=== PATIENT | male | born 1980 | race Caucasian/White ===

== ENCOUNTER 2022-09-30 08:46 | Outpatient (REF) | payer BC, SELFPAY ==
[2022-09-30 12:08] LABS: Alanine Aminotransferase 35 U/L (0-40); Aspartate Amino Transferase 28 U/L (5-37); Cholesterol 224 mg/dL; Glucose Fasting 91 mg/dL (60-99); HDL Cholesterol 44 mg/dL; LDL Cholesterol Calculated 160 mg/dl; Triglycerides 104 mg/dL
== END 2022-09-30 08:47 | disposition home or self-care (01) ==
LOC: HO.HMGCLDS 08:46
PROVIDERS: PCP Internal Medicine; Visit Provider Internal Medicine
DX: Z00.01 Encounter for general adult medical examination with abnormal findings (principal); E66.3 Overweight
CPT/HCPCS: 36415; 80061; 82947; 84450; 84460

== ENCOUNTER 2024-02-15 09:02 | Outpatient (AMB) | payer BC, SELFPAY ==
--- NOTE | 2024-02-15 09:14 | MHC.PC.OV ---
Vital Signs 02/15/24 09:18 Height 5 ft 10 in Weight 229 lb BMI 32.9 BP 130/70 Blood Pressure Location Rt brachial Position Sitting Pulse 44 L Pulse Source Pulse Oximeter Pulse Oximetry (%) 99 Oxygen Delivery Method Room Air Intake Visit Reasons: Annual PE Intake Note: Pt is here today for his PE Allergies No Known Allergies Allergy (Verified 02/15/24 09:40) Medication List - Last Reconciled 02/15/24 by Reyna Rangel MD No Known Home Meds Tobacco use date assessed: 02/15/24 Dental Screening Dental Screen Date: 02/15/24 Did you have a dental visit in the last 12 months?: Yes Did you have a dental problem in the last 6 months where you did not have access to dental care?: No Was dental information given to patient?: Patient has dentist HPI Annual PE HPI Details 43-year-old male with hyperlipidemia, here today for a physical exam. He has been feeling well, with no complaints at present time. Vital signs obtained today however showed that pulse rate was at 41, but blood pressure within normal limits patient denies any chest pain, no shortness of breath, no lightheadedness or weakness. 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 Has been more careful with his diet, avoiding a lot of junk food, lost about 20 lb since last visit [facility] Medical History (Updated 02/15/24 @ 10:05 by Reyna Rangel MD) Sinus bradycardia Hyperlipidemia Bilateral plantar fasciitis Overweight (BMI 25.0-29.9) Family History Father ALS (amyotrophic lateral sclerosis) Diabetes mellitus Mother Cancer Sister Anxiety disorder Social History Housing: House Patient Tobacco Use Status: Never used Tobacco e-Cigarette/Vaping Use: Never Used service: No Current occupational status: employed Cognitive needs: No Hearing needs: No Vision needs: Yes Questionnaire PHQ-9 Over the last 2 weeks, how often have you been bothered by any of the following problems? 1. Little interest or pleasure in doing things: not at all 2. Feeling down, depressed, or hopeless: not at all 3. Trouble falling or staying asleep, or sleeping too much: not at all 4. Feeling tired or having little energy: several days 5. Poor appetite or overeating: several days 6. Feeling bad about yourself - or that you are a failure or have let yourself or your family down: not at all 7. Trouble concentrating on things, such as reading the newspaper or watching television: not at all 8. Moving or speaking so slowly that other people could have noticed. Or the opposite - being so fidgety or restless that you have been moving around a lot more than usual: not at all 9. Thoughts that you would be better off or of hurting yourself in some way: not at all Total score: 2 Depression Screening Interpretation: Negative Depression Screening Done: Yes 07057 - PHQ-9 Billing: Yes Source: Developed by Drs. Gordo Morgan, Verna Sarabia, Donald Pelletier and colleagues, with an educational gui from [employer]. Thrive Questionnaire Date Thrive assessed: 02/15/24 I am a: Patient What is your living situation today?: I have a steady place to live Within the past 12 months, did the food you bought not last and you didn't have the money to get more?: Sometimes True Within the past 12 months, did you worry whether your food would run out before you got money to buy more?: Sometimes True Do you have trouble paying for medicines?: No Do you have trouble getting transportation to medical appointments?: No Do you have trouble paying your heating and electricity bill?: Yes Do you have trouble taking care of your child, family member or friend?: No Do you have trouble with day-to-day activities such as bathing, preparing meals, shopping, managing finances, etc.?: No Are you currently unemployed and looking for a job?: No Are you interested in more education?: No Please select the resources that you would like help with: Housing/Jail Currently or been in a relationship where the following occur: No concerns reported THRIVE Score: 3 AUDIT C Alcohol Use Questionnaire (AUDIT-C) 1. How often do you have a drink containing alcohol?: Monthly or less 2. How many drinks containing alcohol do you have on a typical day when you are drinking?: 1 or 2 3. How often do you have six or more drinks on one occasion?: Never Total Score: 1 ILAN-7 AMB Questionnaire ILAN-7 Date ILAN - 7 assessed: 02/15/24 Feeling nervous, anxious, or on edge: 0 = Not at all Not being able to stop or control worryin = Not at all Worrying too much about different things: 1 = Several days Trouble relaxin = Not at all Being so restless that it is hard to sit still: 0 = Not at all Becoming easily annoyed or irritable: 1 = Several days Feeling afraid as if something awful might happen: 0 = Not at all Total ILAN-7 score (0-4 normal; 5-9 mild; 10-14 moderate; 15-21 severe): 2 Source: Developed by Drs. Gordo Morgan, Verna Sarabia, Donald Pelletier and colleagues, with an educational gui from [employer]. ILAN-7 Assessment Billing ILAN-7 Assessment Tool: ILAN-7 Assessment 67681 Review of Systems Const Denies body aches, Denies difficulty sleeping, Denies fatigue, Denies fever(s), Denies headache(s), Denies lethargy, Denies weakness and Reports weight loss Eyes Details: utd with eye exam , seen at [facility] a month ago Denies change in vision, Denies eye discharge, Denies itchy eyes and Reports requires corrective lenses ENT Denies dizziness, Denies headache(s), Denies nasal congestion, Denies nasal discharge and Denies sore throat Card Denies chest pain, Denies lightheadedness, Denies palpitations and Denies dyspnea Resp Denies chest congestion, Denies cough, Denies dyspnea and Denies wheezing GI Denies abdominal pain, Denies change in bowel habits and Denies heartburn Denies hematuria, Denies difficulty urinating, Denies dysuria, Denies urinary frequency and Denies urinary urgency Musc Reports no additional complaints Skin/Breast Denies lesions and Denies rash Neuro Denies dizziness, Denies headache(s) and Denies weakness Psych Reports as per HPI Endo Denies fatigue, Denies polydipsia, Denies polyuria and Denies palpitations Soren/Lymph Denies easy bruising Aller/Immun Denies itchy eyes, Denies seasonal rhinorrhea and Denies wheezing Physical exam (Primary Care) Vital Signs: Last Vital Signs Pulse 44 L 02/15/24 09:18 BP 130/70 02/15/24 09:18 Pulse Ox 99 02/15/24 09:18 Oxygen Delivery Method Room Air 02/15/24 09:18 BMI result Body Mass Index 32.9 BMI Assessment/Plan discussion: High BMI High, discussed plan: lifestyle, weight reduction, dietary and physical activity Tobacco/Smoking Status: Tobacco use Status Tobacco use date assessed 02/15/24 02/15/24 09:21 Patient Tobacco Use Status Never used Tobacco 02/15/24 09:15 e-Cigarette/Vaping Use Never Used 02/15/24 09:15 PHQ-9: PHQ-9 Score PHQ-9: Total score 2 02/15/24 10:06 Depression Screening Interpretation: Negative Thrive Assessment: Date of Thrive Assessment Date Thrive assessed 02/15/24 02/15/24 09:21 Currently or been in a relationship where the following occur: No concerns reported Const General: cooperative, healthy appearing, comfortable and no acute distress Nutritional Appearance: overweight Orientation/consciousness: patient oriented x3 Limitations: no limitations [facility] Head: Yes normocephalic Ears: hearing grossly normal bilaterally, external ears normal, TM's normal bilaterally and EAC's normal Mouth: Normal oral and palatal mucosa present, oropharynx normal and moist mucous membranes Eyes Periorbital: periorbital findings normal Eyelids: Yes eyelids normal Conjunctivae: conjunctivae normal Sclerae: sclerae normal Pupils: Equal, round and reactive pupils present EOM: EOMs intact bilaterally Neck Neck: Yes full ROM, Yes no lymphadenopathy and Yes supple Thyroid: Thyroid normal Chest Chest palpation & inspection: normal inspection of the chest Resp Effort & Inspection: normal respiratory effort and able to speak in complete sentences Auscultation: clear to auscultation bilaterally Cardio Palpation: normal PMI Rate: bradycardic Rhythm: regular rhythm Heart sounds: S1 normal heart sound present and S2 normal heart sound present Bruits: no abdominal aortic bruits GI Inspection: Yes normal to inspection Palpation (GI): No Abdominal aortic bruit present, Soft to palpation, nontender, no guarding and no masses Auscultation: normal bowel sounds General: Yes no CVA tenderness Male General Exam: Yes normal external exam Penis: normal penis Back/Spine/Pelvis Back: no CVA tenderness and No back tenderness Skin General skin exam: no rashes or lesions noted Neuro General: patient oriented x3, gait normal, tone normal, moves all extremities, Normal light touch and pain sensation, no focal motor deficits and CN's II-XI intact bilaterally Cranial nerves: Yes Equal, round and reactive pupils present Cognition (Neuro): normal cognition Extrem General: Yes full ROM, Yes no joint enlargement, Yes no clubbing, cyanosis or edema, Yes no calf tenderness and Yes normal gait Psych Appearance: grossly normal and well kempt Mental Status: mental status grossly normal Speech and movement: Normal speech and movement present Affect: normal affect Attitude: cooperative Thought process: Normal thought process present Thought content: Normal thought content present Assessment and Plan Assessment & Plan (1) Annual visit for general adult medical examination with abnormal findings: Code(s): Z00.01 - Encounter for general adult medical examination with abnormal findings Plan: Will check appropriate labs. Recommended dental visit every 6 months and regular eye exams, at least every 2 years. Take adequate calcium in diet and vitamin-D 3 at 2000 IU per cap once a day, in addition to weight-bearing exercises to help maintain good muscle tone and weight control. Instructed to do testicular exam check for any mass. Had COVID vaccinations in the past but does not want to get the booster, reminded to get his flu shot yearly, and is up-to-date with his Tdap. (2) Hyperlipidemia: Code(s): E78.5 - Hyperlipidemia, unspecified Qualifiers: Hyperlipidemia type: pure hypercholesterolemia Qualified Code(s): E78.00 - Pure hypercholesterolemia, unspecified Plan: Fasting lipid panel ordered, reinforced following a healthy diet, continue with regular exercise (3) Sinus bradycardia: Code(s): R00.1 - Bradycardia, unspecified Plan: Heart rate noted to be 41 beats per minute, current patient currently asymptomatic with no complaints of any chest pain, shortness of breath, lightheadedness, headache or nausea . 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 He also has been following a healthier diet done last time, has stopped eating a lot of junk food no soda, no alcoholic drinks. EKG done today showed presence of sinus bradycardia Orders: Orders Alanine Aminotransferase 02/15/24 E78.5 - Hyperlipidemia, unspecified, R00.1 - Bradycardia, unspecified, Z00.01 - Encounter for general adult medical examination with abnormal findings TSH reflex Free T4 02/15/24 R00.1 - Bradycardia, unspecified Lipid Panel 02/15/24 E78.5 - Hyperlipidemia, unspecified, R00.1 - Bradycardia, unspecified, Z00.01 - Encounter for general adult medical examination with abnormal findings Aspartate Amino Transferase 02/15/24 E78.5 - Hyperlipidemia, unspecified, R00.1 - Bradycardia, unspecified, Z00.01 - Encounter for general adult medical examination with abnormal findings Glucose Fasting 02/15/24 E78.5 - Hyperlipidemia, unspecified, R00.1 - Bradycardia, unspecified, Z00.01 - Encounter for general adult medical examination with abnormal findings AMB EKG-In Office 02/15/24 R00.1 - Bradycardia, unspecified Coding Level of Care Code Est Pt Prev Care 40-64y(26084) Diagnoses Annual visit for general adult medical examination with abnormal findings Z00.01 Pure hypercholesterolemia E78.00 Hyperlipidemia type: pure hypercholesterolemia Sinus bradycardia R00.1 Additional Codes ILAN-7 Assessment Billing - ILAN-7 Assessment Tool: ILAN-7 Assessment 52851 ([id number])
[2024-02-15 09:18] VITALS: BP 130/70; PULSE 44; O2SAT 99; BMI 32.9
== END 2024-02-15 10:02 | disposition home or self-care (01) ==
PROVIDERS: Visit Provider Internal Medicine
DX: Z00.01 Encounter for general adult medical examination with abnormal findings (principal); E78.00 Pure hypercholesterolemia, unspecified; R00.1 Bradycardia, unspecified
CPT/HCPCS: 93000; 99396

== ENCOUNTER 2024-02-15 10:03 | Outpatient (REF) | payer BC, SELFPAY ==
[2024-02-15 13:34] LABS: Alanine Aminotransferase 48 U/L (0-40); Aspartate Amino Transferase 37 U/L (5-37); Cholesterol 143 mg/dL (<200); Glucose Fasting 91 mg/dL (60-99); HDL Cholesterol 43 mg/dL (>40); LDL Cholesterol Calculated 89 mg/dL (<100); Triglycerides 57 mg/dL (<150)
[2024-02-15 13:49] LABS: TSH reflex Free T4 1.45 uIU/mL (0.32-4.0)
== END 2024-02-15 10:04 | disposition home or self-care (01) ==
LOC: HO.HMGCLDS 10:03
PROVIDERS: PCP Internal Medicine; Visit Provider Internal Medicine
DX: Z00.01 Encounter for general adult medical examination with abnormal findings (principal); E78.5 Hyperlipidemia, unspecified; R00.1 Bradycardia, unspecified
CPT/HCPCS: 36415; 80061; 82947; 84443; 84450; 84460

== ENCOUNTER 2024-04-14 09:09 | Outpatient (AMB) | payer BC, SELFPAY ==
[2024-04-14 09:14] VITALS: BP 138/86; PULSE 45; O2SAT 99; BMI 32.9
--- NOTE | 2024-04-14 09:14 | MHC.OFFWIV ---
Intake Vital Signs 04/14/24 09:14 Height 5 ft 10 in Weight 229 lb BMI 32.9 BP 138/86 Blood Pressure Location Lt brachial Position Sitting Pulse 45 L Pulse Source Pulse Oximeter Pulse Oximetry (%) 99 Oxygen Delivery Method Room Air Intake Visit Reasons: EP-posible uti Intake Note: pt c/o urinary frequency, urgency, no pain or burning. Started 1 week ago Patient Tobacco Use Status: Never used Tobacco Allergies No Known Allergies Allergy (Verified 04/14/24 09:14) Do you need a note to return to daycare/school/sports/work: No HPI HPI Comments History of Present Illness Details 43 y/o male patient who presents to the walk in clinic with c/o Urinary symptoms for 1 week. Reports frequency and urgency. Denies fevers, chills, nausea or vomiting. [facility] Medical History (Updated 02/15/24 @ 10:05 by Reyna Rangel MD) Sinus bradycardia Hyperlipidemia Bilateral plantar fasciitis Overweight (BMI 25.0-29.9) Family History Father ALS (amyotrophic lateral sclerosis) Diabetes mellitus Mother Cancer Sister Anxiety disorder Social History Housing: House Patient Tobacco Use Status: Never used Tobacco e-Cigarette/Vaping Use: Never Used service: No Current occupational status: employed Cognitive needs: No Hearing needs: No Vision needs: Yes Review of Systems Const All systems reviewed & are unremarkable except as noted in HPI and below Physical Exam Vital Signs: Last Vital Signs Pulse 45 L 04/14/24 09:14 BP 138/86 04/14/24 09:14 Pulse Ox 99 04/14/24 09:14 Oxygen Delivery Method Room Air 04/14/24 09:14 BMI result Body Mass Index 32.9 Const General: comfortable Nutritional Appearance: overweight Orientation/consciousness: patient oriented x3 General: Yes no CVA tenderness Back/Spine/Pelvis Back: no CVA tenderness Neuro General: patient oriented x3, gait normal and moves all extremities Psych Speech and movement: Normal speech and movement present Results AMB Urinalysis, Automated UA Leukoctes 0 Radha/uL Last Edit by Royce Shelley CMA on 04/14/24 09:23 UA Nitrite Negative Last Edit by Royce Shelley CMA on 04/14/24 09:23 UA Urobilinogen 0.2 mg/dL Last Edit by Royce Shelley CMA on 04/14/24 09:23 UA Protein 0 mg/dL Last Edit by Royce Shelley CMA on 04/14/24 09:23 UA pH 5.5 Last Edit by Royce Shelley CMA on 04/14/24 09:23 UA Blood 0 David/uL Last Edit by Royce Shelley CMA on 04/14/24 09:23 UA Specific Valentines 1.025 Last Edit by Royce Shelley CMA on 04/14/24 09:23 UA Ketone Negative Last Edit by Royce Shelley CMA on 04/14/24 09:23 UA Bilirubin 0 mg/dL Last Edit by Royce Shelley CMA on 04/14/24 09:23 UA Glucose 0 mg/dL Last Edit by Royce Shelley CMA on 04/14/24 09:23 Results Reviewed Results Reviewed: Laboratory Last Values Urine pH (Auto) 5.5 04/14/24 09:22 Specific Valentines (Auto) 1.025 04/14/24 09:22 Urine Protein (Auto) 0 mg/dL 04/14/24 09:22 Glucose (UA)(Auto) 0 mg/dL 04/14/24 09:22 Urine Ketones (Auto) Negative 04/14/24 09:22 Urine Blood (Auto) 0 David/uL 04/14/24 09:22 Urine Nitrite (Auto) Negative 04/14/24 09:22 Urine Bilirubin (Auto) 0 mg/dL 04/14/24 09:22 Urine Urobilinogen (Auto) 0.2 mg/dL 04/14/24 09:22 Leukocyte Esterase (Auto) 0 Radha/uL 04/14/24 09:22 Assessment & Plan Assessment & Plan (1) Urinary tract infection symptoms: Code(s): R39.9 - Unspecified symptoms and signs involving the genitourinary system Plan: Amb Urinalysis negative. F/U with PCP if symptoms persist. Orders: Orders AMB Urinalysis Automated Today Z13.9 - Encounter for screening, unspecified Coding Level of Care Code Est Pt Level 3 (83312) Diagnoses Urinary tract infection symptoms R39.9 Time Spent (min) 15
== END 2024-04-14 09:58 | disposition home or self-care (01) ==
PROVIDERS: PCP Internal Medicine; Visit Provider Nurse Practitioner Family
DX: Z13.9 Encounter for screening, unspecified (principal); R39.9 Unspecified symptoms and signs involving the genitourinary system

== ENCOUNTER → 2024-04-14 09:09 | Outpatient (BNVA) | payer BC, SELFPAY | PROVIDERS: PCP Internal Medicine | DX: R39.9 Unspecified symptoms and signs involving the genitourinary system (principal) | CPT/HCPCS: 81003 ==

== ENCOUNTER 2024-06-21 07:57 | Outpatient (AMB) | payer BC, SELFPAY ==
[2024-06-21 08:04] VITALS: BP 128/90; PULSE 55; O2SAT 99; BMI 33.4
--- NOTE | 2024-06-21 08:04 | MHC.PC.OV ---
Vital Signs 06/21/24 08:04 Height 5 ft 10 in Weight 233 lb BMI 33.4 BP 128/90 H Blood Pressure Location Lt brachial Position Sitting Pulse 55 Pulse Source Pulse Oximeter Pulse Oximetry (%) 99 Oxygen Delivery Method Room Air Intake Visit Reasons: Frequent urination Intake Note: Pt is here today c/o frequent urination and bloated Allergies No Known Allergies Allergy (Verified 06/21/24 08:44) Medication List - Last Reconciled 06/21/24 by Reyna Rangel MD No Known Home Meds Tobacco use date assessed: 06/21/24 Dental Screening Dental Screen Date: 06/21/24 Did you have a dental visit in the last 12 months?: Yes Did you have a dental problem in the last 6 months where you did not have access to dental care?: No Was dental information given to patient?: Patient has dentist HPI Frequent urination HPI Details The patient is a 43-year-old male presenting with gastrointestinal complaints consisting of bloating, and increased flatulence. He also complains urinary frequency, has 2 urinate every time he consumes fluids and feels more of an urge rather than a necessity. He experiences nocturia, waking twice at night to void. There is also concern regarding significant bloating and passing of gas without associated abdominal pain. The patient reports all foods seem to trigger this bloating and gas, with softer stools than usual but denies diarrhea currently. Previously encountered diarrhea has resolved. There is no evidence of blood or melena. He mentioned slightly elevated liver enzymes in the past, with rare alcohol intake and no medications known to affect liver function. Discussions included the likelihood of IBS or possible lactose intolerance. [facility] Medical History (Updated 06/21/24 @ 08:57 by Reyna Rangel MD) Sinus bradycardia Hyperlipidemia Bilateral plantar fasciitis Overweight (BMI 25.0-29.9) Family History Father ALS (amyotrophic lateral sclerosis) Diabetes mellitus Mother Cancer Sister Anxiety disorder Social History Housing: House Patient Tobacco Use Status: Never used Tobacco e-Cigarette/Vaping Use: Never Used service: No Current occupational status: employed Cognitive needs: No Hearing needs: No Vision needs: Yes Questionnaire Thrive Questionnaire Date Thrive assessed: 02/12/24 I am a: Patient What is your living situation today?: I have a steady place to live Within the past 12 months, did the food you bought not last and you didn't have the money to get more?: Sometimes True Within the past 12 months, did you worry whether your food would run out before you got money to buy more?: Sometimes True Do you have trouble paying for medicines?: No Do you have trouble getting transportation to medical appointments?: No Do you have trouble paying your heating and electricity bill?: Yes Do you have trouble taking care of your child, family member or friend?: No Do you have trouble with day-to-day activities such as bathing, preparing meals, shopping, managing finances, etc.?: No Are you currently unemployed and looking for a job?: No Are you interested in more education?: No Please select the resources that you would like help with: None Currently or been in a relationship where the following occur: No concerns reported THRIVE Score: 3 ILAN-7 AMB Questionnaire ILAN-7 Date ILAN - 7 assessed: 02/15/24 Source: Developed by Drs. Gordo Morgan, Verna Sarabia, Donald Pelletier and colleagues, with an educational gui from [employer]. Review of Systems Const All systems reviewed & are unremarkable except as noted in HPI and below Physical exam (Primary Care) Vital Signs: Last Vital Signs Pulse 55 06/21/24 08:04 BP 128/90 H 06/21/24 08:04 Pulse Ox 99 06/21/24 08:04 Oxygen Delivery Method Room Air 06/21/24 08:04 BMI result Body Mass Index 33.4 BMI Assessment/Plan discussion: High BMI High, discussed plan: lifestyle, weight reduction, dietary and physical activity Tobacco/Smoking Status: Tobacco use Status Tobacco use date assessed 06/21/24 06/21/24 08:30 Patient Tobacco Use Status Never used Tobacco 06/21/24 08:05 e-Cigarette/Vaping Use Never Used 06/21/24 08:05 Thrive Assessment: Date of Thrive Assessment Date Thrive assessed 02/12/24 06/21/24 08:05 Currently or been in a relationship where the following occur: No concerns reported Const General: cooperative, comfortable and no acute distress Nutritional Appearance: overweight Orientation/consciousness: patient oriented x3 [facility] Head: Yes normocephalic Ears: hearing grossly normal bilaterally, external ears normal, TM's normal bilaterally and EAC's normal Mouth: Normal oral and palatal mucosa present, oropharynx normal and moist mucous membranes Eyes Periorbital: periorbital findings normal Eyelids: Yes eyelids normal Conjunctivae: conjunctivae normal Sclerae: sclerae normal Pupils: Equal, round and reactive pupils present EOM: EOMs intact bilaterally Neck Neck: Yes full ROM, Yes no lymphadenopathy and Yes supple Thyroid: Thyroid normal Resp Effort & Inspection: normal respiratory effort and able to speak in complete sentences Auscultation: clear to auscultation bilaterally Cardio Palpation: normal PMI Rate: bradycardic Rhythm: regular rhythm Heart sounds: S1 normal heart sound present and S2 normal heart sound present Bruits: no abdominal aortic bruits GI Inspection: Yes normal to inspection Palpation (GI): No Abdominal aortic bruit present, Soft to palpation, nontender, no guarding and no masses Auscultation: normal bowel sounds General: Yes no CVA tenderness Male General Exam: Yes normal external exam Penis: normal penis Back/Spine/Pelvis Back: no CVA tenderness and No back tenderness Skin General skin exam: no rashes or lesions noted Neuro General: patient oriented x3, gait normal, tone normal, moves all extremities, Normal light touch and pain sensation, no focal motor deficits and CN's II-XI intact bilaterally Cranial nerves: Yes Equal, round and reactive pupils present Cognition (Neuro): normal cognition Extrem General: Yes full ROM, Yes no joint enlargement, Yes no clubbing, cyanosis or edema, Yes no calf tenderness and Yes normal gait Psych Appearance: grossly normal and well kempt Mental Status: mental status grossly normal Speech and movement: Normal speech and movement present Affect: normal affect Attitude: cooperative Thought process: Normal thought process present Thought content: Normal thought content present Results AMB Urinalysis, Automated UA Leukoctes 0 Radha/uL Last Edit by Renita Seay CMA on 06/21/24 08:27 UA Nitrite Negative Last Edit by Renita Seay CMA on 06/21/24 08:27 UA Urobilinogen 0.2 mg/dL Last Edit by Renita Seay CMA on 06/21/24 08:27 UA Protein 0 mg/dL Last Edit by Renita Seay CMA on 06/21/24 08:27 UA pH 6.0 Last Edit by Renita Seay CMA on 06/21/24 08:27 UA Blood 0 David/uL Last Edit by Renita Seay CMA on 06/21/24 08:27 UA Specific [place] 1.030 Last Edit by Renita Seay CMA on 06/21/24 08:27 UA Ketone Negative Last Edit by Renita Seay CMA on 06/21/24 08:27 UA Bilirubin 0 mg/dL Last Edit by Renita Seay CMA on 06/21/24 08:27 UA Glucose 0 mg/dL Last Edit by Renita Seay CMA on 06/21/24 08:27 Results Reviewed Results Reviewed: Laboratory Last Values Urine pH (Auto) 6.0 06/21/24 08:25 Specific [place] (Auto) 1.030 06/21/24 08:25 Urine Protein (Auto) 0 mg/dL 06/21/24 08:25 Glucose (UA)(Auto) 0 mg/dL 06/21/24 08:25 Urine Ketones (Auto) Negative 06/21/24 08:25 Urine Blood (Auto) 0 David/uL 06/21/24 08:25 Urine Nitrite (Auto) Negative 06/21/24 08:25 Urine Bilirubin (Auto) 0 mg/dL 06/21/24 08:25 Urine Urobilinogen (Auto) 0.2 mg/dL 06/21/24 08:25 Leukocyte Esterase (Auto) 0 Radha/uL 06/21/24 08:25 Coding Level of Care Code Est Pt Level 3 (00342) Diagnoses Gassiness R14.0 Irregular bowel habits R19.8 Urinary frequency R35.0 Assessment & Plan Assessment & Plan (1) Gassiness: Code(s): R14.0 - Abdominal distension (gaseous) Category: Medical (2) Irregular bowel habits: Code(s): R19.8 - Other specified symptoms and signs involving the digestive system and abdomen Category: Medical (3) Urinary frequency: Code(s): R35.0 - Frequency of micturition Category: Medical Plan During our discussion, I explained that the patient's gastrointestinal symptoms are likely attributable to possible Irritable Bowel Syndrome (IBS). We reviewed treatment options, and I recommended starting dicyclomine before meals to help regulate bowel movements. I discussed the potential side effects, including constipation and diarrhea, and how to modify the dosing if such side effects occur. I emphasized the importance of lifestyle modifications, such as stress management and exercise, and dietary changes that may alleviate symptoms. Follow-up and monitoring were suggested via the patient portal or phone to assess treatment efficacy and make necessary adjustments. Urinalysis done on today's visit showed unremarkable findings. Orders: Orders AMB Urinalysis Automated 06/21/24 Z13.9 - Encounter for screening, unspecified Medications: New dicyclomine 20 mg PO TID 90 tabs 0RF
== END 2024-06-21 09:09 | disposition home or self-care (01) ==
PROVIDERS: PCP Internal Medicine; Visit Provider Internal Medicine
DX: R14.0 Abdominal distension (gaseous) (principal); R19.8 Other specified symptoms and signs involving the digestive system and abdomen; R35.0 Frequency of micturition

== ENCOUNTER → 2024-06-21 07:57 | Outpatient (BNVA) | payer BC, SELFPAY | PROVIDERS: PCP Internal Medicine; Visit Provider Internal Medicine | DX: R35.0 Frequency of micturition (principal); R14.0 Abdominal distension (gaseous); R19.8 Other specified symptoms and signs involving the digestive system and abdomen | CPT/HCPCS: 81003 ==

== ENCOUNTER 2024-07-21 08:03 | Outpatient (AMB) | payer BC, SELFPAY ==
--- OUTSIDE RECORDS SUMMARY | 2024-07-21 08:23 | XMS_ITS ---
Author Name [facility] Organization Unknown History of Medication Use Medication Directions Dispensed Refills Start Date End Date Stat multivitamin Tab tablet Take 1 tablet by mouth daily. 08/04/2022 active amoxicillin (AMOXIL) 500 MG capsule Take 1 capsule (500 mg total) by mouth 2 (two) times a day. 08/04/2022 aborted amoxicillin-clavulana te (AUGMENTIN) 875-125 MG per tablet Take 1 tablet by mouth 2 (two) times a day. Take with food and 8 ounces of water. 09/02/2022 active Problems Problem Status Onset Date Problem Type Date of Resoluti on Source Acute bacterial sinusitis active EncounterDiagnosisAct CCT Elevated blood pressure reading in office without diagnosis of hypertension active EncounterDiagnosisAct CCT Pharyngitis, streptococcal, acute active EncounterDiagnosisAct CCT
--- NOTE | 2024-07-21 09:07 | AM.OFFWIN_ITS ---
Intake Vital Signs 07/21/24 09:10 Weight 112.037 kg BP 126/84 Blood Pressure Location Rt brachial Position Sitting Pulse 81 Pulse Source Pulse Oximeter Pulse Oximetry (%) 98 Oxygen Delivery Method Room Air Intake Visit Reasons: EP LT shoulder/Muscle pain Intake Note: Patient here for left shoulder pain that started Wednesday. No known injuries. Patient Tobacco Use Status: Never used Tobacco Allergies No Known Allergies Allergy (Verified 07/21/24 09:11) Do you need a note to return to daycare/school/sports/work: No HPI HPI Comments History of Present Illness Details 9[birth year] 43 yo m presents w/ atraumatic L should er pain since Wednesday. Worse w/ movement better at rest. Hx of right shoulder tendinitis in the past but never the left. Denies CP, SOB, fevers, chills, n/v/d, abd pain, jaw pain. PE - full ROM to b/l shoulders however painful ROM to L shoulder. + TTP to left lateral aspect of humeral head. 2+ Radial pulses b/l. Normal distal sensation. Normal cap refil < 2 sec Hx and pe concerning for tendonitits vs OA. Unlikley atypical presentation of ACS, dissection, arterial or venous occlusion Plan- imaging of left shoulder [facility] Medical History Sinus bradycardia Hyperlipidemia Bilateral plantar fasciitis Overweight (BMI 25.0-29.9) Family History Father ALS (amyotrophic lateral sclerosis) Diabetes mellitus Mother Cancer Sister Anxiety disorder Social History Housing: House Patient Tobacco Use Status: Never used Tobacco e-Cigarette/Vaping Use: Never Used service: No Current occupational status: employed Cognitive needs: No Hearing needs: No Vision needs: Yes Review of Systems Const All systems reviewed & are unremarkable except as noted in HPI and below Physical Exam Vital Signs: Last Vital Signs Pulse 81 07/21/24 09:10 BP 126/84 07/21/24 09:10 Pulse Ox 98 07/21/24 09:10 Oxygen Delivery Method Room Air 07/21/24 09:10 vss Appearance: Alert.? Oriented X3.? No acute distress.? Head: Normocephalic, atraumatic, no step-offs or deformities Eyes: Pupils equal, round and reactive to light.? CVS: Normal heart rate and rhythm.? Pulses normal.? Respiratory: No respiratory distress.? Breath sounds normal.? Abdomen: Soft and nontender.? Skin: Skin warm and dry.? Normal skin color.? Normal skin turgor.? Extremities: No lower extremity edema.? No calf ttp. 5/5 strength to bilateral upper and lower extremities. full ROM to b/l shoulders however painful ROM to L shoulder. + TTP to left lateral aspect of humeral head. 2+ Radial pulses b/l. Normal distal sensation. Normal cap refil < 2 sec Neuro: Oriented X 3.? No motor deficit.? No sensory deficit. CN 2-12 intact Assessment & Plan Assessment & Plan (1) Left shoulder pain: Code(s): M25.512 - Pain in left shoulder Plan Take your medications as prescribed. If you were prescribed antibiotics today, it is important that you take your medication to their entirety, do not skip any doses, do not finish them early. Follow-up with your primary care provider this week. Return to the emergency department with new or worsening symptoms. In case of emergency call 911 Orders: Orders XR shoulder LT min 2V Today M25.512 - Pain in left shoulder Medications: New meloxicam 15 mg PO DAILY 30 days 30 tabs 0RF Coding Level of Care Code Est Pt Level 3 (41885) Diagnoses Left shoulder pain M25.512
[2024-07-21 09:10] VITALS: BP 126/84; PULSE 81; O2SAT 98
== END 2024-07-21 09:46 | disposition home or self-care (01) ==
PROVIDERS: PCP Internal Medicine; Visit Provider Physician Assistant
DX: M25.512 Pain in left shoulder (principal)

== ENCOUNTER 2024-07-21 08:03 | Outpatient (REF) | payer BC, SELFPAY ==
--- NOTE | ~2024-07-21 | XR_ITS ---
EXAMINATION: XR SHOULDER, LEFT CLINICAL INFORMATION: Left shoulder pain. COMPARISON: None available. TECHNIQUE: Four views of the left shoulder. FINDINGS: The bones and soft tissues are normal. No fracture. Glenohumeral and acromioclavicular alignment is anatomic with normal joint space. No abnormal soft tissue calcifications. XR/XR shoulder LT min 2V IMPRESSION: Unremarkable examination. Electronically signed by: Darnell Bullock MD 07/21/2024 11:44 AM [facility]
== END 2024-07-21 08:04 | disposition home or self-care (01) ==
LOC: HO.HMGCX 08:03
PROVIDERS: PCP Internal Medicine; Visit Provider Physician Assistant
DX: M25.512 Pain in left shoulder (principal)
CPT/HCPCS: 73030